=== PATIENT | male | born 1955 | race Caucasian/White ===

== ENCOUNTER 2022-05-27 06:44 | Observation (INO) ==
--- NOTE | 2022-05-27 08:48 | Pre Anesthesia Assessment ---
Date of Service May 27, 2022 Pre Sedation Assessment Vital Signs Temp Pulse Resp BP Pulse Ox O2 Del Method 05/27/22 07:08 37.0 C 57 L 16 159/90 H 98 Room Air Cardiovascular + regular rate and + regular rhythm + S1 normal, + S2 normal and + murmur no JVD and no carotid bruit no edema Respiratory + respiratory effort normal; no respiratory distress + clear to auscultation bilaterally; no crackles, no rales, no rhonchi and no wheezes Pre-Sedation Airway Assessment Smoking Status: Former smoker Hx Sleep Apnea: No Short, Thick Neck: Yes Thyromental Distance: > or= 3.5 Finger Breadths Oral Cavity: + WNL Mallampati Class: III ASA: ASA3 NPO Status Date of Last Intake of Fluids: 05/27/22 Time of Last Intake of Fluids: 05:30 Date of Last Intake of Solid Food: 05/26/22 Procedure Planning Contraindications for Sedation: none Current Medications Reviewed: Yes Notes The planned sedation has been discussed with the patient. Informed Consent was obtained. I have identified the patient, determined the appropriateness of sedation and have assessed the patient immediately prior to the procedure. All medicine(s) and interventions are by my order.
--- NOTE | 2022-05-27 08:49 | History & Physical Bridge Note ---
Date of Service May 27, 2022 History & Physical Bridge Note I have examined the patient, reviewed the History & Physical and in the interval since the performance of the History & Physical I have noted the following changes of clinical significance: no changes noted
[2022-05-27] MEDS ORDERED: HEPARIN (PORCINE) 1000 UNIT/ML 10 ML (CATH LAB USE ONLY) ONE ×2 (08:54→10:38)
[2022-05-27] MEDS ORDERED: niCARdipine HCL INJ 2.5 MG/ML 10 ML AMP ONE (08:54)
[2022-05-27] MEDS ORDERED: MIDAZOLAM HCL 1 MG/ML 2ML VIAL ONE ×2 (08:54→09:57)
[2022-05-27] MEDS ORDERED: fentaNYL citrate 100 MCG/2 ML VIAL ONE (08:54)
[2022-05-27] MEDS ORDERED: NITROGLYCERIN/D5W 100MCG/ML 20ML SYR ONE (08:55)
--- NOTE | 2022-05-27 09:46 | Post Anesthesia Assessment ---
Date of Service May 27, 2022 Post Sedation Assessment Vital Signs Temp Pulse Resp BP Pulse Ox O2 Del Method 05/27/22 07:08 37.0 C 57 L 16 159/90 H 98 Room Air Recovery Score Activity: Moves 4 extremities Respiration: Deep Breath/Cough Circulation: +/-20% PreAnes Value Consciousness: Arouseable (by name) Oxygen Saturation: > 92% On Room Air Discharge Sedation Level of Care: Phase I Post Sedation Plan On clinical assessment, the patient appears to have tolerated the sedation without complications. Patient is recovering as anticipated. Patient will continue to be monitored by nursing and may be discharged when sedation discharge criteria are met per below protocol. Upon Completions of procedure up to 15 minutes continue every 5 minute vital signs and the P.A.R. score; then discharge to a Phase I or Fast Track to Phase II per the following guidelines: * Discharge Patient to appropriate Phase II area if PAR is 8 or greater or return to pre- procedure baseline. The post - procedure orders will be as directed. * If PAR score is less than 8 or not return to pre-procedure baseline then patient will follow Phase I monitoring till PAR is reached for Phase II. The Phase I may be done in procedure room or may call to secure a Phase I area. * If naloxone or flumazenil are used for reversal, hold in Phase I for continued monitoring from when last reversal dose was given for a minimum of 60 minutes or longer pending the nurse and/or physician discretion of patient condition before discharge to Phase II. Please call the Sedation Physician to re-evaluate and complete post-note for discharge to Phase II area. Do NOT discharge from procedure sedation or Phase 1 until post- sedation evaluation note is complete by procedure /sedation MD Sedation Discharge Instructions to be given to the patient at discharge to home.
--- NOTE | 2022-05-27 09:55 | Cardiac Catheterization ---
Cardiac Cath Procedure Full Procedure Date May 27, 2022 Pre-Procedure Diagnosis Pre-Procedure Diagnosis: Angina, Positive Stress Test and Valvular Disease AUC Score AUC Score: 7 Post-Procedure Diagnosis Post-Procedure Diagnosis: Severe CAD Procedure(s) Performed Procedure(s) Performed: Coronary Angiography Systems Trainer Marquis Waldrop DO Chemical Analytical Sampler(s) Solo Musician EXTERMINATOR Estimated Blood Loss Estimated Blood Loss: 5cc Medication(s) Medication(s): Fentanyl, Heparin, Lidocaine 1%, Nicardipine, Nitroglycerin and Versed Summary of Findings 99% mid LAD with DEMOND 2 flow Hemodynamics Rest Ao:: 97/61/79 Final Ao: 124/71/94 LV: N/A Recommendations Recommendations: PCI without planned CABG Specimens Specimens: None Radiation Exposure (mGy) 1172 Contrast (mls) 70 Fluids (cc crystalloids) Fluids (cc crystalloids): 80 nss Drains Drains: N/A Anesthesia Moderate sedation. Start 0914. End 0941. Sedation monitor: Nancy STEVE Procedural Complication(s) None Disposition Patient remained in Vice President Of Instruction for PCI of the LAD I attest to the content of the Intraoperative Record and any orders documented therein. Any exceptions are noted below. ACC Data: Vice President Of Instruction Cardiac Status Clinical evaluation leading to the procedure 67-year-old patient with dyspnea on exertion, ascending aortic aneurysm (5.1 cm) and bicuspid aortic valve without stenosis or regurgitation presents with symptoms of dyspnea and decreased exercise capacity. Exercise stress echo demonstrating septal and apical ischemia. Normal resting wall motion. CAD Presenation: Positive Stress Test and Stable angina Anginal Classification: CCS III Heart Failure: No Cardiogenic Shock within 24 Hours: No Stress Studies Past 6 Months: Yes Stress Echocardiogram: Yes - Positive and Risk/Extent of Ischemia (High) Coronary Anatomy Dominant: Right Left Main (% Stenosis): Normal LAD (% Stenosis): Mid (99% with DEMOND 2 flow) and Distal (apical segment fills via left to left collaterals) Circumflex (% Stenosis): Proximal (30%) OM1 (% Stenosis): Normal OM2 (% Stenosis): Normal RCA (% Stenosis): Ostial (high anterior origin, intermittent engagement), Proximal (30%), Mid (30%) and Distal (Diffuse luminal irregularities, 10-20) R PDA (% Stenosis): Distal (Diffuse luminal irregularities, small caliber, 20%) R PL1 (% Stenosis): Normal Diagnostic Physicians Name: Marquis Waldrop DO Closure Device Percutaneous Entry Location: Radial Closure Device: Radial Band Recommendations: PCI without planned CABG Intraprocedure Events Significant Disection: No Perforation: No
[2022-05-27] MEDS ORDERED: CLOPIDOGREL BISULFATE 300 MG TAB ONE (11:08)
--- NOTE | 2022-05-27 11:20 | Post Anesthesia Assessment ---
Date of Service May 27, 2022 Post Sedation Assessment Vital Signs Temp Pulse Resp BP Pulse Ox O2 Del Method 05/27/22 07:08 98.6 F 57 L 16 159/90 H 98 Room Air Recovery Score Activity: Moves 4 extremities Respiration: Deep Breath/Cough Circulation: +/-20% PreAnes Value Consciousness: Arouseable (by name) Oxygen Saturation: > 92% On Room Air Discharge Sedation Level of Care: Fast Track Phase II Post Sedation Plan On clinical assessment, the patient appears to have tolerated the sedation without complications. Patient is recovering as anticipated. Patient will continue to be monitored by nursing and may be discharged when sedation discharge criteria are met per below protocol. Upon Completions of procedure up to 15 minutes continue every 5 minute vital signs and the P.A.R. score; then discharge to a Phase I or Fast Track to Phase II per the following guidelines: * Discharge Patient to appropriate Phase II area if PAR is 8 or greater or return to pre- procedure baseline. The post - procedure orders will be as directed. * If PAR score is less than 8 or not return to pre-procedure baseline then patient will follow Phase I monitoring till PAR is reached for Phase II. The Phase I may be done in procedure room or may call to secure a Phase I area. * If naloxone or flumazenil are used for reversal, hold in Phase I for continued monitoring from when last reversal dose was given for a minimum of 60 minutes or longer pending the nurse and/or physician discretion of patient condition before discharge to Phase II. Please call the Sedation Physician to re-evaluate and complete post-note for discharge to Phase II area. Do NOT discharge from procedure sedation or Phase 1 until post- sedation evaluation note is complete by procedure /sedation MD Sedation Discharge Instructions to be given to the patient at discharge to home.
[2022-05-27] MEDS ORDERED: ONDANSETRON INJ 2 MG/ML 2 ML VIAL IV PRN (11:29)
[2022-05-27] MEDS ORDERED: NITROGLYCERIN SL 0.4 MG/TAB TAB SL PRN (11:29)
[2022-05-27] MEDS ORDERED: ACETAMINOPHEN 325 MG TAB PO PRN (11:29)
--- NOTE | 2022-05-27 11:29 | Cardiac Catheterization ---
[facility] Data: Concrete Bucket Loader Cardiac Status Clinical evaluation leading to the procedure CAD Presenation: Positive Stress Test Anginal Classification: CCS III Diagnostic Physicians Name: Chinmay Wilson MD Closure Device Recommendations: PCI without planned CABG Cardiac Cath Procedure Full Procedure Date May 27, 2022 Pre-Procedure Diagnosis Pre-Procedure Diagnosis: Angina, Positive Stress Test, CAD and Valvular Disease AUC Score AUC Score: 7 Post-Procedure Diagnosis Post-Procedure Diagnosis: Severe CAD and Successful PCI Procedure(s) Performed Procedure(s) Performed: Coronary Angiography and Drug Eluting Stent Airconditioning Drafting Officer Chinmay Wilson MD Seed Expert(s) [place] PHERESIS SPECIALIST Estimated Blood Loss Estimated Blood Loss: 25 Medication(s) Medication(s): Clopidogrel, Fentanyl, Heparin, Nicardipine, Nitroglycerin and Versed Summary of Findings Indication: Angina, abnormal stress test Access: 6 Fr right radial artery Catheters: EBU 3.0 guide (tried EBU 3.75, AL-1). Findings: For full details of patient's coronary angiography please see cath report dictated by Dr. Waldrop. Briefly, patient found to have a subtotal mid LAD occlusion with left to left collaterals to distal vessel. Decision to proceed with PCI. -- PCI -- Antithrombotic therapy: Heparin, clopidogrel Procedure: Left main cannulated with EBU 3.0 guide Pre-procedure flow DEMOND 1-2 Long whisper wire passed across lesion into distal vessel Intraluminal position confirmed via injection through OTW balloon Mid LAD lesion predilated with 2.0 compliant balloon Short whisper wire placed into second diagonal Dilated lesion stented with 2.5 x 30 mm Sanjeev drug-eluting stent D2 rewired with fixed wing pilot 50 wire through stent struts Ostium of D2 dilated through stent struts with 2.0 balloon Stent post-dilated with 2.75 noncompliant balloon IC vasodilators administered for spasm Residual narrowing at distal aspect of stent covered with second MURIEL (2.25 x 12 mm Sanjeev) Stent postdilated with stent balloon IC vasodilators administered for spasm. Residual ostial stenosis of D2 but T IMI-3 flow. Post procedure DEMOND 3 flow in LAD, stents well expanded with minimal residual stenosis and no apparent cardiac complications. Arterial Closure: TR band Summary: 1. Successful PCI of mid LAD with 2 overlapping drug-eluting stents (2.5 x 30, 2.25 x 12 mm Sanjeev; postdilated with 2.75 NC). -Angioplasty to jailed ostium of second diagonal with 2.0 balloon Recommendations: To PCU for continued monitoring Loaded with clopidogrel 600 mg in Concrete Bucket Loader Continue dual-antiplatelet therapy for at least 6 months Continue statin, and ASCVD risk factor modification Consult cardiac Rehab Hemodynamics Rest Ao:: 111/66/82 Final Ao: 81/53/67 LV: -- Recommendations Recommendations: PCI without planned CABG Specimens Specimens: None Radiation Exposure (mGy) 3815 Contrast (mls) 175 Drains Drains: N/A Anesthesia Moderate sedation. Start 0958. End 1108. Sedation monitor: Nancy STEVE Procedural Complication(s) None Disposition PCU I attest to the content of the Intraoperative Record and any orders documented therein. Any exceptions are noted below. [facility] Card Cath Procedure Codes Moderate Sedation Procedure 1: Sedation/Anesthesia: 16667 Mod Sedation by the same physician; Ea [id number] Minutes Stenting Procedure 1: Cardiovascular Stent Procedures: 68221 Perc transcatheter placement of intracoronary stent(s), with ang PG Care Time/CCT Total # of Minutes Spent Total Time Spent with Patient: Total time spent is greater than 50% in coordination of care (as documented) at patient's floor/unit and/or counseling patient:
[2022-05-27] MEDS ORDERED: SODIUM CHLORIDE 0.9% 1000ML 1,000 ML IV SCH (11:30)
--- NOTE | 2022-05-27 13:39 | Consultation ---
Date of Consultation May 27, 2022 Assessment & Plan (1) CAD S/P percutaneous coronary angioplasty: (2) GERD (gastroesophageal reflux disease): (3) Hypothyroidism: (4) BPH (benign prostatic hyperplasia): (5) Hyperlipidemia: Plan Mr. Tree Hall is a 67 year old male who presented to the [facility] cathode builder for a planned PCI without CABG where two overlapping MURIEL were placed d/t sub-totally occluded mid LAD. Pt typically follows with Dr. Waldrop. Post-p rocedure; patient will continue Dual antiplatelet therapy x 6 months. The patient will be admitted overnight for observation. CAD s/p PCI: Successful PCI of mid LAD with 2 overlapping drug-eluting stents. EBL: 25mL Hgb 03/17: 15.7 Right TR Band intact and air being released by nursing. No bleeding noted. PCU for continued monitoring Loaded with clopidogrel 600 mg in Personnel Analyst Cardiology to manage all anticoagulation, pain management, follow up. Most recent EF: 50-54%. Continue dual-antiplatelet therapy for at least 6 months Continue statin, and ASCVD risk factor modification Consult cardiac Rehab Hypothyroidism: Stable Last TSH: Continue Synthroid GERD: Stable: continue Protonix Hyperlipidemia: Stable: Continue Atorvastatin BPH: Stable; continue Tamsulosin. Disposition: PCP: lAonzo Ramírez PA-C Code Status: Full Code VTE Prophylaxis: KWAN Next of Kin: Gia; [phone] Plan to return home at MD. [facility]. We are available 18/04 via [place] [employer] for any questions. Supervising Physician Co-Signing Physician Notes Attending addendum: The patient was seen and examined in telemetry unit He is a status post cardiac cath and placement of 2 overlapping stent in the LAD Denies any symptoms On examination Lying in bed comfortably Hemodynamically stable with blood pressure at 146/84 Chestclear to auscultate bilaterally HeartS1-S2 with a 2/6 ESM over precordium Abdomenbenign Extremitiesnegative for any edema His cath report noted Will monitor routine lab works while in the hospital Was loaded with Plavix and will be continued aspirin and Plavix for at least 6 months Agree with assessment and plan as outlined above by Rebeca booth History of Present Illness Requesting Physician: Dr. Wilson Reason for Consultation: Medical Management Attending Physician: Marquis Waldrop DO History of Present Illness Mr. Tree Hall is a 67 year old male who presented to the [facility] cathode builder for a planned PCI without CABG where two overlapping MURIEL were placed d/t sub-totally occluded mid LAD. Pt typically follows with Dr. Waldrop. Post- procedure; patient will continue Dual antiplatelet therapy x 6 months. Additional PMH includes: BPH, hypothyroidism, OA, GERD, benign neoplasm of the colon. Post cath; the patient denies BOWMAN, dizziness, chest pain, palpitations, SOB, appetite changes, N/V/D. The patient will be admitted overnight for observation. Allergies Allergy/AdvReac Type Severity Reaction Status Date / Time No Known Allergies Allergy Verified 05/27/22 07:15 Home Medications Medication Instructions Recorded Confirmed Type aspirin 81 mg chewable tablet 81 mg PO DAILY 05/27/22 05/27/22 History atorvastatin 80 mg tablet 80 mg PO DAILY 05/27/22 05/27/22 History ketoconazole 2 % topical cream 1 applic topical BID 05/27/22 05/27/22 History levothyroxine 75 mcg tablet 75 mcg PO DAILY 05/27/22 05/27/22 History mupirocin 2 % topical ointment 1 applic topical TID 05/27/22 05/27/22 History nitroglycerin 0.4 mg sublingual 0.4 mg sublingual ONCE PRN Chest 05/27/22 05/27/22 History tablet (Nitrostat) Pain omeprazole 20 mg capsule,delayed 20 mg PO DAILY 05/27/22 05/27/22 History release tamsulosin 0.4 mg capsule 0.4 mg PO DAILY 05/27/22 05/27/22 History Patient History Medical History (Updated 05/27/22 @ 13:38 by DERIAN Argueta) BPH (benign prostatic hyperplasia) CAD S/P percutaneous coronary angioplasty GERD (gastroesophageal reflux disease) Hyperlipidemia Hypothyroidism Social History Smoking Status: Former smoker Hx Alcohol Use: Yes Alcohol type: beer Hx Substance Use: No Current Living Situation: Spouse Feels Safe at Home: Yes Safety Concerns: Feels Safe At This Time Assistive Devices: None Review of Systems Review of Systems: Neuro: (-) Falls, trauma, slurred speech HEENT: (-) BOWMAN, dizziness, dysphagia, visual or auditory changes CV: (-) CP, palpitations, swelling Resp: (-) SOB GI: (-) appetite changes, N/V/D, bowel changes : (-) urinary changes Skin: (-) rashes Psych: (-) anxiety, depression Physical Exam Physical Exam: Neuro: AAOx4, PERRLA, no aphagia, memory changes, CNII-XII grossly intact HEENT: head normocephalic, moist mucus membranes CV: S1/S2, (-) M/G/R, (-) edema, cap refill < 3 seconds. Right TR band Resp: Lungs CTA in all burrell. On RA GI: Abdomen S/NT/ND, Ax4 bowel sounds, (-) CVA tenderness Musculoskeletal: 5/5 B/L UE strength, 5/5 B/L LE strength. No gait disturbance Skin: (-) rashes , (-) erythema. Psych: euthymic mood Results & Data ([facility]) Vital Signs (Past 12 Hours) Vital Signs Temp Pulse Resp BP Pulse Ox O2 Del Method 05/27/22 13:00 62 16 129/93 98 Room Air 05/27/22 12:45 60 16 137/99 99 Room Air 05/27/22 12:30 62 14 146/94 H 98 Room Air 05/27/22 12:15 63 16 140/87 98 Room Air 05/27/22 12:00 62 16 133/85 98 Room Air 05/27/22 11:45 62 16 143/91 H 98 Room Air 05/27/22 11:30 62 16 116/79 98 Room Air 05/27/22 11:18 59 L 16 106/81 98 Room Air 05/27/22 07:08 37.0 C 57 L 16 159/90 H 98 Room Air ECG Additional Comments: Sinus bradycardia
--- NOTE | 2022-05-27 17:57 | Electrocardiogram Report ---
Test Reason : Blood Pressure : / mmHG Vent. Rate : 053 BPM Atrial Rate : 053 BPM P-R Int : 192 ms QRS Dur : 104 ms QT Int : 462 ms P-R-T Axes : 042 -13 031 degrees QTc Int : 433 ms Sinus bradycardia Otherwise normal ECG No previous ECGs available Confirmed by Chinmay Gauthier ([id number]) on 05/27/2022 5:57:29 PM Referred By: Marquis Waldrop Confirmed By:David Gauthier
[2022-05-28] MEDS ORDERED: ATORVASTATIN 40 MG TAB PO SCH (09:00)
[2022-05-28] MEDS ORDERED: ASPIRIN 81 MG ECTAB PO SCH (09:00)
[2022-05-28] MEDS ORDERED: LEVOTHYROXINE SODIUM 75 MCG TABLET PO SCH (09:00)
[2022-05-28] MEDS ORDERED: TAMSULOSIN HCL 0.4 MG CAP PO SCH (09:00)
[2022-05-28] MEDS ORDERED: CLOPIDOGREL BISULFATE 75 MG TAB PO SCH (09:00)
[2022-05-28] MEDS ORDERED: PANTOprazole 40 MG TAB PO SCH (09:00)
--- NOTE | 2022-05-28 11:06 | Cardiology Progress Note ---
Date of Service May 28, 2022 Assessment & Plan (1) CAD S/P percutaneous coronary angioplasty: (2) Dyslipidemia, goal LDL below 70: Plan Status post 05/27/2022 PCI of mid LAD with 2 overlapping drug-eluting stents (2.5 x 30, 2.25 x 12 mm [place]) and angioplasty to the jailed ostium of the second diagonal branch by Dr. Wilson, via right radial access OK for discharge. Continue dual-antiplatelet therapy without interruption for at least 6 months Continue high intensity statin therapy, ASCVD risk factor modification Cardiac Rehabilitation Patient requested prescriptions for atorvastatin and clopidogrel be to [facility]. This will be completed via the [employer] EMR. Outpatient general cardiology follow-up in 3-4 weeks or as needed; office aware, will contact patient Admission and Anticipated Discharge Date Admission Date: May 27, 2022 Supervising Physician Co-Signing Physician Notes Patient seen and examined with Nicholas Estrada PA-C. Agree with findings and assessment as above. Medications and follow-up as above. Subjective Patient seen and examined. Chart, medications, and telemetry reviewed. Lone complaint is that of chronic right shoulder pain. No headache, visual changes, dizziness, chest pain, dyspnea, palpitations, orthopnea, PND, edema fevers, chills, melena, hematochezia, or hematuria. Telemetry: Sinus rhythm in the 60's and 70's. Review of Systems Review of Systems: Complete review of systems is as stated above, negative, or noncontributory. Physical Exam Physical Exam: General: A&Ox3. NAD. HENT: Normocephalic. Atraumatic. Eyes: PER. Conjunctiva pink, sclera clear. Neck: No carotid bruits. No JVD. Heart: RRR, 74 bpm. Lungs: Clear to auscultation. Abdomen: +BS. Soft. Nontender. No masses or organomegaly. Extremities: The right radial access site dressing is clean and dry. Right radial pulse is 2/4. Left radial pulse is 2/4. No hematoma. No cyanosis. No clubbing. No lower extremity edema. Limited neurological examination is without focal deficits. Results & Data ([facility]) Vital Signs (Past 12 Hours) Vital Signs Temp Pulse Pulse Resp BP Pulse Ox O2 Del Method 05/28/22 08:09 36.8 C 63 16 140/89 95 Room Air 05/28/22 07:11 61 05/28/22 03:06 36.6 C 69 18 138/81 98 05/27/22 23:39 36.6 C 69 18 142/97 H 96 Room Air 05/27/22 23:05 80
--- NOTE | 2022-05-28 12:01 | Hospitalist Progress Note ---
Date of Service May 28, 2022 Assessment & Plan (1) CAD S/P percutaneous coronary angioplasty: (2) GERD (gastroesophageal reflux disease): (3) Hypothyroidism: (4) BPH (benign prostatic hyperplasia): (5) Hyperlipidemia: Plan 67 year old male who presented to the [facility] mechanical laboratory technician for a planned PCI without CABG where two overlapping MURIEL were placed d/t sub-totally occluded mid LAD. Pt typically follows with Dr. Waldrop. CAD s/p PCI: Successful PCI of mid LAD with 2 overlapping drug-eluting stents. Loaded with clopidogrel 600 mg in Risk Control Specialist Continue dual-antiplatelet therapy for at least 6 months Continue statin Patient to follow up with Cardiology outpatient Hypothyroidism: Continue Synthroid GERD: Stable: continue Protonix BPH: Stable; continue Tamsulosin. Admission and Anticipated Discharge Date Admission Date: May 27, 2022 Subjective Patient seen and examined. Denies any chest pain, cough, shortness of breath, palpitations Denies any fevers, chills Reports some right shoulder pain which is chronic. Denies any nausea, vomiting, abdominal pain, diarrhea. Patient feeling good and eager to go home. Physical Exam Constitutional: + well hydrated; no acute distress Eyes: PERRL, conjunctivae normal, anicteric sclerae ENMT: external ear and nose normal, oropharynx normal Respiratory: normal respiratory effort, lungs clear to auscultation Cardiovascular: Rate/Rhythm: regular rate and regular rhythm S1 S2 Gastrointestinal (Abdomen): normal bowel sounds, soft, nontender, no hepatosplenomegaly Musculoskeletal: no cyanosis or clubbing, extremities motor strength 5/5 Neurologic: PERRL, EOMI, accommodation nl, no face palsy, no dysarthria Psychiatric: A+Ox3, euthymic affect Results & Data Results & Data ([facility]) Vital Signs (Past 12 Hours) Vital Signs Temp Pulse Pulse Resp BP Pulse Ox O2 Del Method 05/28/22 08:09 36.8 C 63 16 140/89 95 Room Air 05/28/22 07:11 61 05/28/22 03:06 36.6 C 69 18 138/81 98 Laboratory Results Abnormal lab results 05/27/22 05/27/22 Range/Units 10:35 11:04 Activ Coag Time Kaolin 231 H 271 H (94-140) SECONDS
--- NOTE | 2022-05-28 12:28 | Discharge Summary ---
Date of Service May 28, 2022 Admission Exam Per Admitting Provider Mr. Tree Hall is a 67 year old male who presented to the [facility] [employer] lab[employer] for a planned PCI without CABG where two overlapping MURIEL were placed d/t sub-totally occluded mid LAD. Pt typically follows with Dr. Waldrop. Post- procedure; patient will continue Dual antiplatelet therapy x 6 months. The patient will be admitted overnight for observation. Principal Diagnosis Coronary artery disease Discharge Exam General: Awake, alert and oriented x 3. No acute distress. HEENT: Normocephalic, atraumatic. Pupils equal, round and reactive to light and accommodation. Extraocular muscles are intact. Anicteric sclera. Moist mucous membranes. Neck: No JVD. No bruit. Cardiovascular: Regular. Positive S-4. Normal S-1 and S-2. No S-3. No murmurs or rubs. Pulmonary: Clear to auscultation B/L. No rales, rhonchi or wheezing Abdomen: Bowel sounds x 4, soft. No rebound, guarding or tenderness. No organomegaly. Extremities: No clubbing, cyanosis or edema. +2 pedal pulses bilaterally. Skin: Warm and dry. Discharge Data Allergies Allergy/AdvReac Type Severity Reaction Status Date / Time No Known Allergies Allergy Verified 05/27/22 07:15 Consultations 05/27/22 11:38 Consult Hospitalist Routine Procedures Performed Operation Date: 05/27/22 08:00 Actual Procedures s Cineradiography w/Routine Exam - Marquis Waldrop DO p Cath, Left with Cors and Vent - Marquis Waldrop DO p Drug Eluting Stent SGl Vessel - Joey Wilson MD Ordered Studies 05/27/22 06:45 CL Cath Imgs for PACS use only Routine Hospital Course (1) CAD S/P percutaneous coronary angioplasty: (2) Dyslipidemia, goal LDL below 70: Plan Status post 05/27/2022 PCI of mid LAD with 2 overlapping drug-eluting stents (2.5 x 30, 2.25 x 12 mm [place]) and angioplasty to the jailed ostium of the second diagonal branch by Dr. Wilson, via right radial access OK for discharge. Continue dual-antiplatelet therapy without interruption for at least 6 months Continue high intensity statin therapy, ASCVD risk factor modification Cardiac Rehabilitation Patient requested prescriptions for atorvastatin and clopidogrel be to [facility]. This will be completed via the [employer] EMR. Outpatient general cardiology follow-up in 3-4 weeks or as needed; office aware, will contact patient Total Time Total Time Spent Total Time Spent (In Minutes): 36 Discharge Plan Discharge Items Patient Disposition: Home - Self-Care Reason For Visit: Abnormal Stress Echo Discharge Diagnosis: coronary artery disease Activity: As commented below Lifting: Gradually increase as tolerated Bathing: No limitations Sexual Activity: When tolerated Exercise/Sports: Rest today Driving/Machine Use: No limitations Weightbearing: Full weightbearing Non-emergency contact: Primary Care Provider Call non-emergency contact if: you have any medication questions Follow-up/Referrals: Alonzo Ramírez PA-C [Primary Care Provider] - Diet: Heart Healthy Addtl Attending Provider Instructions: ACTIVITY RECOMMENDATIONS: Excess manipulation of the wrist should be avoided for the next 24-48 hours. * No lifting over 2 pounds (approximately a 1/2 gallon of milk) with the utilized arm for 24 hours. * No strenuous activity such as bowling or tennis for 3 days. * Keep the site of the procedure covered with a bandage for 24 hours. *You may shower the day after the procedure. Do not take a tub bath or submerge the puncture site in water for the next 3 days. *Do not operate any motorized equipment for 3 days. SPECIAL CARE INSTRUCTIONS: The site may be slightly bruised and sore following your procedure. Should any of the following occur, contact the Dr. who performed your procedure. 1. Redness/inflammation, swelling, chills, or fever, or colored drainage at procedure site within 3-7 days after your procedure. 2. Coldness, discoloration, ongoing numbness, severe pain, or swelling. Expect mild tingling of hand and tenderness at the puncture site for up to three days. If this persists beyond three days, or other symptoms develop, notify the Dr. who performed your procedure. BLEEDING: If the procedure site on your wrist begins to bleed, do not panic 1. Place 1 or 2 fingers firmly just slightly above the insertion site to stop the bleeding. You may be able to feel your pulse as you hold pressure. 2. Lift your finger after 5 minutes to see if the bleeding has stopped. 3. Once the bleeding has stopped, gently wipe the wrist area clean with a bandage. * If the bleeding from your wrist does not stop after 10 minutes, or if there is a large amount of bleeding or spurting, call 911 (do not drive yourself to the hospital). SKIN IRRITATION: * You may experience some redness and/or swelling in the area where radiation was administered. If any skin irritation occurs, please contact your family physician. FOLLOW UP VISIT: Keep any scheduled doctor appointments. Pending Studies at Discharge: No Stand-Alone Forms: My [facility], Smoking Cessation Medications and DC Order Prescriptions: New clopidogrel 75 mg Tablet 75 mg PO QAM Qty: 30 5RF Continued atorvastatin 80 mg Tablet 80 mg PO DAILY levothyroxine 75 mcg Tablet 75 mcg PO DAILY tamsulosin 0.4 mg Capsule 0.4 mg PO DAILY nitroglycerin [Nitrostat] 0.4 mg Tablet, Sublingual 0.4 mg sublingual ONCE PRN (Reason: Chest Pain) omeprazole 20 mg Capsule,Delayed Release(Dr/Ec) 20 mg PO DAILY aspirin 81 mg Tablet,Chewable 81 mg PO DAILY mupirocin 2 % Ointment 1 applic TOPICAL TID ketoconazole 2 % Cream 1 applic TOPICAL BID Discharge Orders: Discharge Order (Routine); Ordered 05/28/22 Ordered By: Juan M Garza/Other Patient Handouts: CAD Admission Data Admit Date/Time: 05/27/22 11:35 Attending Provider: Juan M He Admit Provider: Marquis Waldrop Primary Care Provider: Alonzo Ramírez Other Providers: Rebeca Santana I. Supervising Physician Co-Signing Physician Notes Patient seen and examined with Nicholas Estrada PA-C. Agree with findings and assessment as above. Medications and follow-up as above.
== END 2022-05-28 13:41 | disposition home or self-care (01) ==
LOC: 2E 06:44 → CC 06:44